=== PATIENT | male | born 1955 | race Caucasian/White ===

== ENCOUNTER 2018-04-14 08:50 | Inpatient (IN) | payer OTHER ==
[~2018-04-14] VITALS: Ht 172.7 cm; Wt 80.9 kg
--- NOTE | 2018-04-14 09:00 | NUR ---
PT WAS BROUGHT IN BY AMBULANCE W/CC OF ALOC. PER MEDICS "PATIENT'S WITNESSED PATIENT HAVING A FULL BODY SHAKE THAT LASTED ABOUT 10MINS. UPON ARRIVAL, PATIENT WAS A/O X1. HE'S NOW A/O X4. NO PRIOR HX OF SEIZURE STATED BY PATIENT OR PATIENT'S ". PT ANSWERING QUESTIONS APPROPRIATELY AT THIS TIME. SEIZURE PRECAUTIONS IMPLEMENTED. DR. VIVEROS AT BEDSIDE FOR MSE. COMFORT MEASURES IMPLEMENTED. NO NEUROLOGICAL DEFICITS NOTED AT THIS TIME HOWEVER PT STATED HE HAS HAD INCREASED DIFFICULTY AMBULATING LATELY WHICH HE REPORTS WAS OCCURING PRIOR TO POSSIBLE SEIZURE TODAY. CALL LIGHT W/IN REACH. WILL CONTINUE TO MONITOR.
[2018-04-14 09:01] VITALS: Ht 172.7 cm; Wt 80.9 kg
[2018-04-14 09:26] LABS: BASOPHIL % 0.7 % (0-2); RED CELL DISTRIBUTION WIDTH 14.1 % (11.5-14.5)
[2018-04-14 09:27] LABS: CALCIUM 8.6 mg/dL (8.5-10.1); CARBON DIOXIDE 23.4 mmol/L (21-32); CHLORIDE SERUM 98 mmol/L (98-107); CREATININE SERUM 1.2 mg/dL (0.7-1.3); GFR1 > 60 mL/min; GLUCOSE SERUM 101 mg/dL (74-106); POTASSIUM SERUM 3.3 mmol/L (3.5-5.1); SODIUM SERUM 139 mmol/L (136-145)
[2018-04-14 09:32] LABS: ALKALINE PHOSPHATASE 90 U/L (46-116); ALT/SGPT 31 U/L (16-63); AST/SGOT 52 U/L (15-37); CHOLESTEROL 162 mg/dL (<200); TOTAL PROTEIN, SERUM 7.9 g/dL (6.4-8.2)
[2018-04-14 09:34] LABS: ALBUMIN 3.3 g/dL (3.4-5.0)
--- NOTE | 2018-04-14 09:42 | NUR ---
PT MEDICATED PER ORDER. SEE EMAR FOR DETAILS. AT BEDSIDE. PT IN POSITION OF COMFORT. NO S/S OF DISTRESS.
[2018-04-14 10:03] LABS: PLATELET COUNT 17 x10^3mcL (130-400)
--- NOTE | 2018-04-14 11:20 | NUR ---
PT UNABLE TO URINATE AT THIS TIME. PT LAYING ON GURNEY IN POSITION OF COMFORT. RESP E/U. NO S/S OF DISTRESS. PT AT BEDSIDE. PT COMMUNICATING W/ AND STAFF. CALL LIGHT W/IN REACH. WILL CONTINUE TO MONITOR
--- NOTE | 2018-04-14 12:10 | NUR ---
PT SITTING ON GURNEY IN POSITION OF COMFORT. AT BEDSIDE. NO S/S OF DISTRESS. RESP E/U. COMFORT MEASURES IMPLEMENTED. CALL LIGHT W/IN REACH. WILL CONTINUE TO MONITOR.
[2018-04-14 13:32] LABS: MAGNESIUM 1.1 mg/dL (1.8-2.4); PHOSPHOROUS 3.1 mg/dL (2.5-4.9)
[2018-04-14 13:41] LABS: FREE T4 1.22 ng/dL (0.76-1.46); FREE THYROXINE INDEX 3.3 ug/dL (1.4-4.5); T4(THYROXINE) 8.6 ug/dL (4.7-13.3)
[2018-04-14 13:44] LABS: T3 TOTAL 0.79 ng/mL
--- NOTE | 2018-04-14 14:52 | NUR ---
REPORT GIVEN TO EDITH MCELROY TO ASSUME CARE OF PT.
[2018-04-14 15:26] VITALS: BP 134/86
--- NOTE | 2018-04-14 15:29 | NUR ---
RECEIVED PT FROM ED VIA [employer]. ORIENTED PT TO ROOM AND SURROUNDINGS. IV NOTED TO RFA PATENT AND INTACT. TELE 32 PLACED ON PT READING NSR. INSTRUDCTED PT ON THE USE OF CALL LIGHT FOR ASSISTANCE. WILL CONTINUE TO MONITOR
[2018-04-14] MEDS ORDERED: ALDACTONE50 MG PO (16:17)
[2018-04-14] MEDS ORDERED: LASIX40 MG PO (16:18)
[2018-04-14] MEDS ORDERED: NATURE'S BLEND F1 MG PO ×2 (16:18→19:11)
[2018-04-14] MEDS ORDERED: VITAMIN B-121000 MC2 PO (16:20)
[2018-04-14] MEDS ORDERED: PHARMASSURE VI100 MG PO (16:21)
--- NOTE | 2018-04-14 16:30 | NUR ---
PLT 17, MADE SKIDWAY MAN GENET AWARE, NO ORDERS RECEIVED. K+ 3.3, MADE SKIDWAY MAN GENET AWARE, STATES HE WILL ORDER POTASSIUM, AWAITING ORDERS.
--- NOTE | 2018-04-14 16:31 | NUR ---
RECEIVED PT AWAKE, ALERT, RESPIRATIONS EVEN AND UNLABORED, NO S/S OF DISTRESS NOTED. IV SITE CDI AND PATENT. ULTRASOUND IN ROOM.
[2018-04-14 16:56] VITALS: BP 122/75
--- NOTE | 2018-04-14 19:09 | NUR ---
ENDORSED CARE TO SOCK IRONER NURSE, ALL QUESTIONS AND CONCERNS WERE ADDRESSED. PT AWAKE, ALERT, RESPIRATIONS EVEN AND UNLABORED, NO S/S OF DISTRESS NOTED. SAFETY PRECAUTIONS IN PLACE
--- NOTE | 2018-04-14 19:31 | NUR ---
RECEIVED PATIENT FROM DAY SHIFT RN. TELE 32 NSR HR 95. PATIENT DENIES ANY CHEST PAIN. PATIENT IS AAOX4. LUNG SOUNDS CLEAR ON RA. IV RFA PATENT INFUSING WELL. PATIENT HAS MILD HAND MOVEMENTS. LEFT WRIST COVERED IN DRESSING. SAFETY PRECAUTIONS IN PLACE. SEIZURE PRECAUTIONS IN PLACE. FAMILY AT BEDSIDE. CALL BUTTON WITHIN REACH WILL CONTINUE TO MONITOR.
--- NOTE | 2018-04-14 20:18 | NUR ---
SKIN TEAR NOTED ON LEFT WRIST LOWER EXTREMITY, PICTURE TAKEN AND COVERED.
[2018-04-14 20:40] VITALS: BP 121/72
--- NOTE | 2018-04-14 21:57 | NUR ---
DR XIE MADE AWARE OF PATIENTS LAB RESULT K 3.3 AND PLT OF 17. AWAITING NEW ORDER.
--- NOTE | 2018-04-14 22:31 | NUR ---
PATIENT AWAKE IN BED, DENIES ANY PAIN OR DISCOMFORT. SEIZURE PRECAUTIONS IN PLACE. SAFETY PRECAUTIONS IN PLACE. WILL CONTINUE TO MONITOR.
--- NOTE | 2018-04-15 01:12 | NUR ---
PATIENT RESTLESS, UNSTEADTY TRYING TO GET OUT OF BED, ATIVAN GIVEN PER EMAR. SAFETY PRECAUTIONS IN PLACE. WILL CONTINUE TO MONITOR.
--- NOTE | 2018-04-15 02:32 | NUR ---
PATIENT STILL RESTLESS AND HAVING TREMORS. DR XIE MADE AWARE AND ORDERED ATIVAN IV. MEDICATED PER EMAR. SAFETY PRECAUTIONS IN PLACE. WILL CONTINUE TO MONITOR.
--- NOTE | 2018-04-15 03:26 | NUR ---
PATIENT LAYING DOWN IN BED, DENIES ANY PAIN AT THIS TIME, SAFETY PRECAUTIONS IN PLACE. WILL CONTINUE TO MONITOR.
--- NOTE | 2018-04-15 05:37 | NUR ---
PATIENT AGITATED AND RESTLESS, PATIENT SEEMS CONFUSED THINKING HE HAS FAMILY MEMBERS AT BEDSIDE, TRYING TO TAKE OFF MONITOR. DR XIE MADE AWARE. ATIVAN GIVEN PER EMAR. SAFETY PRECAUTIONS IN PLACE. WILL CONTINUE TO MONITOR.
--- NOTE | 2018-04-15 05:54 | NUR ---
PATIENT IS ALERT AND OREINTED WITH CONFUSION THINKS HE HAS HIS FAMILY IN THE ROOM WITH HIM. PATIENT GETS AGITATED FREQUENTLY TRYING TO GET OUT OF BED AND TAKE OFF THE TELE MONITOR. PATIENT UNSTEADY ON HIS FEET. GENERALIZED WEAKNESS. IV RFA INFUSING WELL. SKIN TEAR NOTED TO LEFT WRIST DRESSING CDI. SEIZURE PRECAUTIONS IN PLACE. SAFETY PRECAUTIONS IN PLACE. CALL BUTTON WITHIN REACH. MEDICATED PER EMAR. WILL CONTINUE TO MONITOR AND ENDORSE CARE TO DAY SHIFT RN.
[2018-04-15 06:13] VITALS: BP 160/79
[2018-04-15 06:54] VITALS: BP 111/78
--- NOTE | 2018-04-15 07:00 | NUR ---
PATIENT AND REPORT RECEIVED FROM BOOKING OFFICER LATESHA SHARMA.
[2018-04-15 07:26] LABS: BASOPHIL % 0.5 % (0-2); RED CELL DISTRIBUTION WIDTH 13.3 % (11.5-14.5)
[2018-04-15 07:31] LABS: PLATELET COUNT 13 x10^3mcL (130-400)
--- NOTE | 2018-04-15 07:38 | NUR ---
PATIENT ASLEEP RESTING NO SIGNS OF DISTRESS NOTED. SEIZURE PRECAUTIONS IN PLACE, SAFETY PRECAUTIONS IN PLACE. ENDORSED CARE TO DAY SHIFT RN, ALL QUESTIONS ADDRESSED.
[2018-04-15 07:52] LABS: ALKALINE PHOSPHATASE 80 U/L (46-116); ALT/SGPT 27 U/L (16-63); AST/SGOT 46 U/L (15-37); BILIRUBIN DIRECT 2.59 mg/dL (0.0-0.2); BILIRUBIN TOTAL 4.27 mg/dL (0.20-1.00); CALCIUM 7.9 mg/dL (8.5-10.1); CARBON DIOXIDE 22.9 mmol/L (21-32); CHLORIDE SERUM 99 mmol/L (98-107); CREATININE SERUM 0.7 mg/dL (0.7-1.3); GFR1 > 60 mL/min; GLUCOSE SERUM 70 mg/dL (74-106); POTASSIUM SERUM 3.1 mmol/L (3.5-5.1); SODIUM SERUM 137 mmol/L (136-145); TOTAL PROTEIN, SERUM 7.2 g/dL (6.4-8.2)
[2018-04-15 08:03] LABS: ALBUMIN 2.9 g/dL (3.4-5.0)
[2018-04-15 09:21] VITALS: BP 109/69
[2018-04-15 12:52] VITALS: BP 109/72
[2018-04-15 17:19] VITALS: BP 120/72
--- NOTE | 2018-04-15 19:25 | NUR ---
RECEIVED PT AWAKE, ALERT AND ORIENTED X4, DENIES ANY WILLIAMSON, DIZZINESS, NO SZ ACTIVITY NOTED SINCE BEING ADMITTED. SZ PRECAUTIONS IN PL. PT IS ABLE TO VERBALIZE NEEDS AND CONCERNS. TELE MONITOR IN PL, DENIES CHEST PAIN OR CHEST DISCOMFORT AT THIS TIME. ON RA, BREATHING IS EVEN AND UNLABORED. DENIES ANY SOB AT THIS TIME. NO C/O PAIN AT THIS TIME. IV TO RFA PATENT AND INTACT. NO SIGNS OF INFILTRATION OR REDNESS NOTED TO AREA. ALL SAFETY MEASURES MAINTAINED. CALL LIGHT AND PERSONAL BELONGINGS WITHIN REACH. AT BEDSIDE. WILL CONTINUE TO MONITOR.
--- NOTE | 2018-04-15 21:15 | NUR ---
REPORT GIVEN TO EDITH LIMA FOR CONTINUITY OF CARE. PT COMFORTABLE, NO DISTRESS NOTED. SAFETY MEASURES IN PL.
[2018-04-15 21:19] VITALS: BP 130/82
--- NOTE | 2018-04-15 21:35 | NUR ---
TOOK OVER PATIENT CARE FROM BHUMI, REPORT GIVEN. PATIOENT IN BED AWAKE AND ABLE TO VERBALIZED NEEDS WITH AT BEDSIDE. NO SIGN OF ACUTE DISTRESS NOTED. WILL CONTINUE TO MONITOR.
--- NOTE | 2018-04-16 | NUR ---
APPEARS SLEEPING AT THIS TIME BREATHING EASY AND NONLABOR. WILL CONTINUE TO MONITOR.
--- NOTE | 2018-04-16 05:04 | NUR ---
SLEPT AT LONG INTERVALS DENIES PAIN AND DISCOMFORT THE ENTIRE SHIFT. ALL NEEDS ATTENDED.
[2018-04-16 05:27] VITALS: BP 128/86
[2018-04-16 09:15] LABS: BASOPHIL % 0.7 % (0-2); RED CELL DISTRIBUTION WIDTH 13.6 % (11.5-14.5)
[2018-04-16 09:20] VITALS: BP 142/80
[2018-04-16 09:22] LABS: CALCIUM 8.8 mg/dL (8.5-10.1); CARBON DIOXIDE 22.8 mmol/L (21-32); CHLORIDE SERUM 101 mmol/L (98-107); CREATININE SERUM 0.7 mg/dL (0.7-1.3); GFR1 > 60 mL/min; GLUCOSE SERUM 92 mg/dL (74-106); POTASSIUM SERUM 3.4 mmol/L (3.5-5.1); SODIUM SERUM 136 mmol/L (136-145)
[2018-04-16 10:00] LABS: PLATELET COUNT 24 x10^3mcL (130-400)
[2018-04-16 13:46] VITALS: BP 139/91
--- NOTE | 2018-04-16 16:45 | NUR ---
CALL PLSQL DEVELOPER FLOYD MADE AWARE MG 1.4, NOTIFIED THAT PT HAS BEEN REFUSING MEDS. OBTAINED ORDER FOR PO MAG-OX 400MG PO ONCE AND ADD MG LEVEL IN AM LABS. ATTENDING NURSE MADE AWARE.
[2018-04-16 17:47] VITALS: BP 130/88
--- NOTE | 2018-04-16 19:35 | NUR ---
RECEIVED PT AWAKE, ALERT AND ORIENTED X4, PT DENIES ANY WILLIAMSON, DIZZINESS AT THIS TIME. SEIZURE PRECAUTIONS IN PL. MILD TREMORS NOTED. PT DENIES CHEST PAIN OR BREATHING DISCOMFORT. NO ACUTE DISTRESS. PT DENIES PAIN AT THIS TIME. IV TO RH PATENT AND INTACT. NO INFILTRATION OR REDNESS NOTED TO SITE. DISCUSSED ALCOHOL CESSATION AND PROGRAMS WITH PT, HE VERBALIZED UNDERSTANDING; ALL SAFETY MEASURES MAINTAINED. CALL LIGHT IN REACH AND PERSONAL ITEMS IN REACH. BED IN LOW POSITION, X2 RAILS UP. FAMILY AT BEDSIDE. WILL CONTINUE TO MONITOR.
[2018-04-16 21:08] VITALS: BP 126/83
--- NOTE | 2018-04-16 23:20 | NUR ---
PT RESTING COMFORTABLY WITH EYES CLOSED; EASILY AROUSABLE. BREATHING EVEN AND UNLABORED. NO C/O PAIN OR DISCOMFORT NOTED. ALL SAFETY MEASURES MAINTAINED. CALL LIGHT AND PERSONAL ITEMS IN REACH. WILL CONTINUE TO MONITOR.
[2018-04-17 05:09] VITALS: BP 119/89
--- NOTE | 2018-04-17 06:36 | NUR ---
PT RESTED DURING THE NIGHT WITH NO DISTRESS OR ACUTE CHANGES IN CONDITION. PT REMAINS ALERT AND ORIENTED TO BASELINE. SLIGHT CONFUSION AT TIMES, NO REPORTS OF HALLUCINATION NOTED, NO AGITATION NOTED. SZ PRECAUTIONS HAVE BEEN MAINTAINED. PT HAS BEEN HAS BEEN CALM AND COLLABORATIVE WITH CARE. CALL LIGHT IN REACH. WILL ENDORSE CARE TO AM NURSE AND CONTINUE TO MONITOR.
--- NOTE | 2018-04-17 08:00 | NUR ---
RECEIVED PATEINT ON ALCOHOL WITHDRAW. ALERT/ORINTED X3. SEIZURE PRECAUTION IN PLACE. TELE#32; ST = HR = 110. DENIED CHEST PAIN. NO RESP DISTRESS ON RA. TOLERATED REGULAR DIET BREAKFAST. NO N/V. DENIED PAIN. IVF OF NS 40CC/HR TO LFA. GENERAL WEAKNESS. ABULATED ON SLOW GAIT. SKIN TEAR TO L WRIST W/ DRSG INTACT. CALL LIGHT IN REACH.
--- NOTE | 2018-04-17 09:15 | NUR ---
SOPHIA DE LEÓN SAW PATIENT. PLAN OF DISCHARGE TO HOME W/ HOME PT TODAY DISCUSSED W/ PATIENT. KACEYEN TPULLED OUT NEEDLE AND TELE MONITOR BY SELF. AT BED SIDE.
[2018-04-17 09:28] VITALS: BP 105/75
[2018-04-17 10:07] VITALS: BP 119/89
--- NOTE | 2018-04-17 11:00 | NUR ---
WOUND CARE OF SKIN TEAR AT L WRIST GIVEN. PHOTO TAKEN AND FILED.
--- NOTE | 2018-04-17 11:35 | NUR ---
D/C TO HOME PER ORDER. INSTRUCTION GIVEN. IV D/C'D. OVER NEEDLE CATH INTACT. CONDITION STABLE. WALKED IN ROOM. ACCOMPANIED W/ .
--- NOTE | 2018-04-18 13:59 | NUR ---
PHYSICAL THERAPY DAILY NOTES CO-SIGN All documentation done by the Kinesiology Professor for 04/18/18 has been reviewed. I agree with the documentation. Reviewed/Co-Signed by: Krista Jones Documentation Done by:LYN TRAN
== END 2018-04-17 11:24 | disposition home health service (06) | DRG 53 ==
LOC: ED 08:50 → DU 10:52
PROVIDERS: Radiology Diagnostic Radiology; Specialist; ADMIT Family Medicine
DX: R56.9 Unspecified convulsions (principal); N17.0 Acute kidney failure with tubular necrosis; E44.0 Moderate protein-calorie malnutrition; D61.818 Other pancytopenia; D68.8 Other specified coagulation defects; G62.9 Polyneuropathy, unspecified; E83.42 Hypomagnesemia; E86.0 Dehydration; F10.239 Alcohol dependence with withdrawal, unspecified; K70.30 Alcoholic cirrhosis of liver without ascites; Y90.0 Blood alcohol level of less than 20 mg/100 ml; F17.210 Nicotine dependence, cigarettes, uncomplicated; E87.6 Hypokalemia; I10 Essential (primary) hypertension
CPT/HCPCS: 84439; 97110-GP; 97116-GP; 97530-GP; G0480; J2060; J3411; J3475; J3490; J7030; Q0092

== ENCOUNTER 2018-11-02 21:46 | Inpatient (IN) | payer OTHER ==
[~2018-11-02] VITALS: Ht 177.8 cm; Wt 76.2 kg
[~2018-11-02 21:46] MED LIST: ALDACTONE50 MG PO; LASIX40 MG PO; NATURE'S BLEND F1 MG PO; PHARMASSURE VI100 MG PO; VITAMIN B-121000 MC2 PO
[2018-11-02 21:52] VITALS: Ht 177.8 cm; Wt 76.2 kg
--- NOTE | 2018-11-02 21:55 | NUR ---
PT B[facility] AND [facility] WITH C/O BILATERAL LEG WEAKNESS X2 DAYS. PT HAS A HX OF ETOH ABUSE X30 YRS. PT STATES THAT HIS LAST DRINK WAS YESTERDAY, PT STATES THAT HE DID NOT CONSUME ETOH TODAY BECAUSE HE WAS NOT FEELING WELL. PT STATES THAT HE USUALLY DRINKS VODKA. PT NOTED WITH COURSE TREMORS TO FACE, TRUNK, AND UPPER EXTREMITIES. PT DENIES PAIN AT THIS TIME BUT STATES TO FEELING GENERALLY WEAK. PER MEDICS, PT HOME WAS "VERY WARM". 12 LEAD EKG PERFORMED BY MEDICS SHOWED SINUS TACHYCARDIA. HR NOTED AT 126 AT THIS TIME. IV ESTABLISHED BY MEDICS EN ROUTE. PT AOX4, RESP EVEN AND UNLABORED, NO ACUTE DISTRESS NOTED. PT ON FULL CM.
[2018-11-02 22:39] LABS: BASOPHIL % 0.3 % (0-2)
[2018-11-02 22:41] LABS: CALCIUM 8.9 mg/dL (8.5-10.1); CARBON DIOXIDE 20.7 mmol/L (21-32); CHLORIDE SERUM 94 mmol/L (98-107); CREATININE SERUM 1.2 mg/dL (0.7-1.3); GFR1 > 60 mL/min; GLUCOSE SERUM 87 mg/dL (74-106); POTASSIUM SERUM 3.6 mmol/L (3.5-5.1); SODIUM SERUM 140 mmol/L (136-145)
[2018-11-02 22:43] LABS: RED CELL DISTRIBUTION WIDTH 15.6 % (11.5-14.5)
[2018-11-02 22:44] LABS: PLATELET COUNT 20 x10^3mcL (130-400)
[2018-11-02 22:45] LABS: ALKALINE PHOSPHATASE 64 U/L (46-116); ALT/SGPT 70 U/L (16-63); AST/SGOT 82 U/L (15-37); BILIRUBIN TOTAL 6.3 mg/dL (0.20-1.00); LIPASE 217 IU/L (73-393)
[2018-11-02 22:46] LABS: TOTAL PROTEIN, SERUM 8.7 g/dL (6.4-8.2)
[2018-11-02 22:52] LABS: MAGNESIUM 0.8 mg/dL (1.8-2.4)
--- NOTE | 2018-11-02 23:00 | NUR ---
MAGNESIUM INFUSION STARTED FOR CRITICAL MAG LEVEL. PT AOX4, RESP EVEN AND UNLABORED, NO ACUTE DISTRESS NOTED. PT REMAINS ON FULL CM.
--- NOTE | 2018-11-03 00:24 | NUR ---
PT UNABLE TO PROVIDE URINE SPECIMEN AT THIS TIME. PER DR TIANNA SAEZ TO TRANSFER WITHOUT URINE.
--- NOTE | 2018-11-03 00:24 | NUR ---
PT REPORT CALLED TO YOLANDA SHARMA TO ASSUME PT CARE.
--- NOTE | 2018-11-03 00:30 | NUR ---
RECEIVED PT VIA JUAN LUIS FROM E/D, ACCOMPANIED BY RN, TRANSPORTER, AND PT'S , MATTY FORREST. PT A/A/O X 4, CALM, COOPERATIVE, HAS SLURRED SPEECH; SEIZURE PRECAUTIONS IN PLACE. ON TELE # 14, HR 89, NSR, DENIES CHEST PAIN OR DISCOMFORT AT THIS TIME. NO ACUTE RESPIRATORY DISTRESS NOTED. ABD SOFT, ROUND, NON-TENDER, NORMOACTIVE BOWEL SOUNDS X 4 QUADS, LAST BM 11/01/18, FORMED, +NAUSEA. BLE WEAKNESS, USES WALKER @ HOME, UPPER BODY FINE TREMORS NOTED, FALL RISK PROTOCOL IN PLACE. LFA SCATTERED ECCHYMOSIS OF VARYING SHAPES, SIZES, AND STAGES OF HEALING, ALL LOREN; L MEDIAL FOOT SCATTERED BLISTERS OF VERYING SIZES AND COLORS, ALL LOREN. IV SITE LFA 18G, CDI. ORIENTED PT AND TO ROOM, BED CONTROLS, CALL LIGHT SYSTEM. SIDE RAILS UP X 2, BED IN LOW POSITION. WILL ENDORSE TO EDITH GUERRERO.
--- NOTE | 2018-11-03 00:45 | NUR ---
RECEIVED PATIENT FROM EDITH GARBER. PATIENT WAS SEEN AND IS RESTING COMFORTABLY IN BED WITH JACK. NO DISTRESS NOTED. BREATHING EVEN AND UNLABORED ON ROOM AIR. NO SOB OR RESP DISTRESS NOTED. NO C/O PAIN. STATES HE HAD NUMBNESS IN HIS BLE DUE TO HIS NEUROPATHY. IV TO THE LFA. PATENT AND INTACT. WILL ADMINISTERED NS PRESCRIBED. SEIZURE PRECAUTIONS IN PLACE. COMFORT AND SAFETY MEASURES IN PLACE. BED IS LOCKED AND IN THE LOWEST POSITION. SIDE RAILS UP X2. CALL LIGHT IS WITHIN REACH. WILL CONTINUE TO MONITOR.
--- NOTE | 2018-11-03 00:45 | NUR ---
PT TRANSFERRED TO 218B BY YASEMIN BY MYSELF AND SENIA EMT. PT ON ORNAMENT MAKER HAND FOR TRANSFER. PT AOX4, RESP EVEN AND UNLABORED, NO ACUTE DISTRESS NOTED. PT ACCEPTED BY YOLANDA SHARMA TO ASSUME PT CARE. PT TRANSFERRED FROM [facility] TO BED WITHOUT INCIDENT.
[2018-11-03 00:56] VITALS: BP 116/73
--- NOTE | 2018-11-03 01:07 | NUR ---
PATIENT REQUESTIN ICE WATER. NO DIET ORDER AT THIS TIME. PAGE GATED DR DISLA FOR DIET ORDERS. NO NEW ORDERS AT THIS TIME. WILL CONTINUE TO MONITOR
--- NOTE | 2018-11-03 01:18 | NUR ---
GAVE PATIENT ICE WATER. PAGE GATED DR DISLA FOR ETOH PROTOCOL ORDERS. PATIENT IS A CHRONIC DRINKER X30 YEARS. LAST DRINK WAS YESTERDAY. NO NEW ORDERS AT THIS TIME. WILL CONTINUE TO MONITOR.
--- NOTE | 2018-11-03 01:38 | NUR ---
URINE COLLECTED FOR UA AND UDS. DARK MELODY YELLOW URINE NOTED. DENIES DSYURIA. WILL CONTINUE TO MONITOR
[2018-11-03 02:13] LABS: microscopic required? NO
[2018-11-03 02:27] LABS: AMPHETAMINE QUAL UR NONE DETECTED (See below)
[2018-11-03 02:39] LABS: UA SPECIFIC GRAVITY 1.015 (1.005-1.035); urine erythrocyte NEGATIVE (NEGATIVE)
--- NOTE | 2018-11-03 02:54 | NUR ---
PATIENT IS RESTING IN BED COMFORTABLY WATCHING TV. DENIES PAIN. NO DISTRESS NOTED. BREATHING EVEN AND UNLABORED ON ROOM AIR. SEIZURE PRECAUTIONS IN PLACE. CALL LIGHT IS WITHIN REACH. WILL CONTINUE TO MONITOR.
[2018-11-03 04:56] VITALS: BP 116/75
--- NOTE | 2018-11-03 05:18 | NUR ---
PATIENT IS RESTING IN BED W/ EYES CLOSED AT THIS TIME. NO ACUTE CHANGES NOTED. BREATHING EVEN AND UNLABORED ON ROOM AIR. NO DISTRESS NOTED. NO C/O PAIN OR CHEST PAIN THROUGHOUT THE NIGHT. IV TO THE LFA INFUSING WELL. PATENT AND INTACT. NO REDNESS OR SWELLING NOTED. FALL PRECAUTIONS AND ETOH WITHDRAWAL IN PLACE. SEIZURE PRECAUTIONS IN PLACE. NO SEIZURES NOTED. SAFETY MEASURES IN PLACE. CALL LIGHT IS WITHIN REACH. WILL CONTINUE TO MONITOR AND ENDORSE CARE TO DAY SHIFT RN.
[2018-11-03 06:42] LABS: BASOPHIL % 0.3 % (0-2)
[2018-11-03 07:10] LABS: RED CELL DISTRIBUTION WIDTH 15.8 % (11.5-14.5)
[2018-11-03 07:13] LABS: PLATELET COUNT 13 x10^3mcL (130-400)
--- NOTE | 2018-11-03 07:25 | NUR ---
CRITICAL LAB: PLT 13. DR DISLA NOTIFIED AND AWARE. NO NEW ORDERS AT THIS TIME. DAY SHIFT RN CORA AWARE WELL.
--- NOTE | 2018-11-03 07:45 | NUR ---
PATIENT RESTING IN BED, NO ACUTE DISTRESS NOTED AT THIS TIME. PATIENT IS PLACED ON SEIZURE. TELE MONITOR IN PLACE, DENIES CHEST PAIN. PATIENT DENIES N/V. WEAKNESS NOTED TO BILATERAL LOWER EXTREMITIES. NS IV INFUSING TO LFA AT 100ML/HR, IV SITE CDI &PATENT, AND NO S/S OF INFILTRATION. CALL LIGHT WITHIN REACH, BED IN LOW POSITION, WILL CONTINUE TO MONITOR FOR CHANGES.
[2018-11-03 09:07] VITALS: BP 106/73
--- NOTE | 2018-11-03 10:24 | NUR ---
PATIENT AMBULATING HALLWAY WITH PHYSICAL THERAPY, SLOW GAIT NOTED. PATIENT DENEIS SOB, ON ROOM AIR. WILL CONTINUE TO MONITOR FOR CHANGES.
[2018-11-03 10:39] LABS: CALCIUM 7.7 mg/dL (8.5-10.1); CHLORIDE SERUM 96 mmol/L (98-107); GFR1 > 60 mL/min; GLUCOSE SERUM 76 mg/dL (74-106); MAGNESIUM 1.3 mg/dL (1.8-2.4); PHOSPHOROUS 3.6 mg/dL (2.5-4.9); POTASSIUM SERUM 3.4 mmol/L (3.5-5.1); SODIUM SERUM 136 mmol/L (136-145)
--- NOTE | 2018-11-03 11:50 | NUR ---
DR CUMMINGS AWARE PATIENT MAG WAS 1.3, K 3.4, CA 7.7. DR CUMMINGS WILL PLACE ORDERS TO REPLACE ELECTROLYTES, WILL CARRY OUT ANY NEW ORDERS PLACED AND CONTINUE TO MONITOR FOR CHANGES.
[2018-11-03 12:41] VITALS: BP 108/69
--- NOTE | 2018-11-03 12:41 | NUR ---
PATIENT AMBULATED TO BR AT THIS TIME, SLOW UNSTEADY GAIT NOTED. FAMILY AT BEDSIDE. NO ACUTE DISTRESS NOTED AT THIS TIME, WILL CONTINUE TO MONITOR PATIENT.
[2018-11-03 14:39] LABS: BASOPHIL % 0.2 % (0-2)
[2018-11-03 14:53] LABS: RED CELL DISTRIBUTION WIDTH 15.5 % (11.5-14.5)
[2018-11-03 14:56] LABS: PLATELET COUNT 10 x10^3mcL (130-400)
[2018-11-03 17:18] VITALS: BP 102/72
--- NOTE | 2018-11-03 17:48 | NUR ---
PATIENT SITTING AT BEDSIDE, PATIENT IS EATING. FAMILY AT BEDSIDE. PATIENT DENIES PAIN. SEIZURE PRECAUTIONS IN PLACE. TELE MONITOR IN PLACE. PATIENT DENIES SOB, ON ROOM AIR. ALL NEEDS MET AT THIS TIME. NS IV INFUSING TO LFA AT 100ML/HR, NO S/S OF INFILTRATION. CALL LIGHT WITHIN REACH, BED IN LOW POSITION, WILL CONTIUE TO MONITOR AND ENDORSE REPORT TO NIGHT NURSE.
[2018-11-03 20:36] VITALS: BP 104/69
--- NOTE | 2018-11-03 21:09 | NUR ---
Awake and verbally responsive. No respiratory distress noted on room air. Denies pain at this time. Denies n/v. Seizure precaution observed. Will cont.to monitor. Call light within reach.
--- NOTE | 2018-11-04 04:17 | NUR ---
Afebrile. No significant change in condition noted. Resting in bed, no tremors noted. Denies pain. In no apparent distress.
[2018-11-04 04:58] VITALS: BP 103/68
[2018-11-04 06:41] LABS: CALCIUM 8.6 mg/dL (8.5-10.1); CARBON DIOXIDE 26.4 mmol/L (21-32); CHLORIDE SERUM 97 mmol/L (98-107); CREATININE SERUM 0.9 mg/dL (0.7-1.3); GFR1 > 60 mL/min; GLUCOSE SERUM 87 mg/dL (74-106); MAGNESIUM 1.7 mg/dL (1.8-2.4); POTASSIUM SERUM 3.2 mmol/L (3.5-5.1); SODIUM SERUM 137 mmol/L (136-145)
--- NOTE | 2018-11-04 07:12 | NUR ---
RECEIVED HAND OFF REPORT FROM NIGHT NURSE, PATIENT LAYING ON LEFT SIDE IN BED, ALERT AND ORIENTED WITH NO COMPLAINTS AT THIS TIME, TELE [address] CALL LIGHT WITHIN REACH, YELLOW SLIP RESISTANT SOCKS ON. PATIENT STATED HIS WILL BE HERE SHORTLY. INFORMED PATIENT THAT IF HE NEEDS TO GET UP TO USE CALL LIGHT FOR ASSISTANCE. WILL CONTINUE TO MONITOR
[2018-11-04 08:53] LABS: RED CELL DISTRIBUTION WIDTH 15.4 % (11.5-14.5)
[2018-11-04 08:57] VITALS: BP 107/73
--- NOTE | 2018-11-04 09:08 | NUR ---
ADMINSITERED MEDICATION PER JUN. PATIENT COMPLAINING OF PAIN TO LEFT HIP REQUESTING NORCO. WILL REASSESS PAIN
--- NOTE | 2018-11-04 09:20 | NUR ---
RECEIVED CRITICAL LAB VALUE FROM LAB OF PLATELET COUNT OF 18. TRENDING UP FROM PREVIOUS BLOOD WORK. CALLED DESIRE GRANT COORDINATOR TO INFORM BUT NO ANSWER A TTHIS TIME. WILL TRY AGAIN
--- NOTE | 2018-11-04 10:42 | NUR ---
ADMINSITERED MEDICATION PER MAR. PATIENT SLEEPING AT THIS TIME. AT BEDSIDE ASKING ABOUT NICOTINE PATCH. DESIRE TO SEE PATIENT AT THIS TIME
--- NOTE | 2018-11-04 11:13 | NUR ---
PATEINT REQUESTING NICOTINE PATCH. RECEIVED ORDER FROM DESIRE REGISTERED RESPIRATORY TECHNICIAN. PLACED ON RIGHT ARM. CALL LIGHT WITHINR EACH, IN ROOM
[2018-11-04 12:10] LABS: BAND NEUTROPHIL 0 % (0-10); rbc morphology (normal/abnorm) NORMAL (NORMAL)
[2018-11-04 12:18] LABS: PLATELET COUNT 18 x10^3mcL (130-400)
--- NOTE | 2018-11-04 12:31 | NUR ---
patient visualized sitting up at side of bed wth at [facility]. no complaints at this time. call light wihtinr each. will continue to monitor
--- NOTE | 2018-11-04 14:10 | NUR ---
ASSISTED PATIENT TO REPOSITION SELF IN BED. PATIENT ABLE TO MOVE WITH MINIMAL ASSISTANCE. PATIENT STATED HIS HELPED HIM SHAVE WITH SUPPLIES BROUGHT FROM HOME. NO CUTS OR BLEEDING DURING SHAVING. ADMINSITERED MEDICATION PER MAR. PATIENT REQUESTED TO REST AT THIS TIME. DOWNSTAIRS, WILL RETURN. CALLIGHT WITHIN REACH OF PATIENT.
--- NOTE | 2018-11-04 15:22 | NUR ---
Intervention 1. Continue with Cardiac-LoChol/LoFat/2gNa diet 2. Education given on Cirrhosis of liver
--- NOTE | 2018-11-04 15:22 | NUR ---
Initial Nutrition Assessment: Fred Joaquim OLGA Rm 218B Dx: Alcohol withdrawal, weakness PMHx: HTN, Liver cirrhosis, peripheral neuropathy, seizure, thrombocytopenia, ETOH abuse 30+ years PSHx: None Labs: K 3.2L, Cl 97L, (11/03) WBC 3.7L, Hgb. 10.9L, Hct. 31L Meds: Colace, Folic Acid, Lasix, Librium, Theragran-m, Vit. B1 and B12, B6, Zofran Diet: Cardiac-LoChol/LoFat/2gNa PO intake since admission: (11/03) 40-80% Ht: 177.8cm, 70in Wt: 76.2kg, 167# BMI: 24.1kg/m2(Normal) Bed scale: could not take due to pt not in bed, per his he is normally 170# IBW:160#, 73kg %IBW: 104% UBW: 160-170# Age: 63/M Food Allergies: NKA Skin: Intact. Krish: 19 Edema: None noted GI: Last BM: 11/04/18 per pt's Per H&P: This patient is a 63 year old male with history of heavy alcohol use, alcoholic cirrhosis, seizures, HTN was brought in by EMS from home to the ED with c/o generalized weakness for the past 1 week. Patient's stated he is barely able to walk and he feels very weak. Patient stated he drinks 5 cans of alcohol every day and his last drink was yesterday. He didn't drink alcohol today. No c/o seizure, loss of consciousness, slurred speech, confusion, fever, headache, chest pain, urinary disturbance, abdominal pain, Hematemesis, jia. Patient ambulates with the help of walker and doesn't use home oxygen. 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 She said she is going to make sure he stops drinking alcohol and will continue to monitor how big his portion sizes will be. NCM packet on Cirrhosis of the liver was given to the . Marissa also said the pt was prescribed a fiber supplement because he has had a history of constipation and she said he uses it sporadically. Pt is taking Lasix 40mg a day. Problem with: N: No V: No D: No C: Yes Problems with: Chewing: None Swallowing: None Current appetite: Good Recent wt change: None %wt change: None Vitamin/Supplement use: Takes B-Complex vitamins daily Special diet at home: Low sodium Physical activity: None due to peripheral neuropathy in his legs Nutrition education given (specify specific nutrition education and handout given): NCM on Cirrhosis of the Liver packet Food-drug interactions: Lasix-watch your potassium levels. Education given: Yes Estimated Nutritional Needs Based on actual body weight (76kg) Energy:4876-1184 kcal/day (30-32kcal/kg for liver cirrhosis ) Protein: 76-114g/day (1.0-1.5g/kg for liver cirrhosis) Fluid: 2280-2430mL/day (1 mL/kcal) or per Nutrition Diagnosis: 1. Excessive alcohol intake r/t lack of value for behavior change aeb per H&P pt reported drinking more than 5 cans of alcohol a everyday. Intervention 1. Continue with Cardiac-LoChol/LoFat/2gNa diet 2. Education given on Cirrhosis of liver Monitor/Evaluate Goal: PO intake at least 75% of estimated needs Monitor: PO intake, Labs, GI function F/U 11/07-11/09
[2018-11-04 16:08] VITALS: BP 101/71
--- NOTE | 2018-11-04 17:25 | NUR ---
PATIENT RESTING AT THIS TIME. NO COMPLAINTS. AT BEDSIDE. CALL IGHT WITHIN REACH
--- NOTE | 2018-11-04 19:35 | NUR ---
RECEIVED PT FROM DAY SHIFT RN. PT AAOX4. DENIES HEADACHE OR DIZZINESS. BREATHING EVEN AND UNLABORED, NO SOB NOTED. TELE #14. PT DENIES CHEST PAIN/PRESSURE. ABD SOFT/ROND. ACTIVE BOWEL SOUNDS DENIES ABD PAIN/N/V. GENERALIZED WEAKNESS NOTED. IV LFA PATENT. NO SIGNS OF ACUTE DISTRESS NOTED. CALL BUTTON WITHIN REACH. SAFETY PRECAUTIONS IN PLACE. SEIZURE PRECAUTIONS IN PLACE. AT BEDSIDE. WILL CONTINUE TO MONITOR.
--- NOTE | 2018-11-04 20:20 | NUR ---
DR POWELL AND DR QUAN MADE AWARE PT POTASSIUM LEVEL 3.2. NO NEW ORDERS AT THIS TIME.
[2018-11-04 21:11] VITALS: BP 98/66
--- NOTE | 2018-11-05 00:34 | NUR ---
DR POWELL RE-INFORMED ABOUT PATIENTS k+3.2 THAT IT HAD BEEN TRENDING DOWN AND PATIENT ON DAILY LASIX AND ALDACTONE. MD VERBALLY STATED WILL ORDER TO REPLACE IT. WILL ENDORSE ABOVE TO ASSIGNED NURSE SAMMI TO FOLLOW UP.
--- NOTE | 2018-11-05 01:30 | NUR ---
PT AWKAE DENIES PAIN. NO SIGNS OF DISTRESS NOTED. IV PATENT. CALL BUTTON WITHIN REACH. SAFETY PRECAUTIONS IN PLACE. WILL CONTINUE TO MONITOR.
--- NOTE | 2018-11-05 05:49 | NUR ---
PT SLEPT MOST OF THE NIGHT WITH NO SIGNS OF DISTRESS NOTED. IV PATENT, INFUSING WELL. NO SIGNS OF INFILTRATION NOTED. PT DENIES ANY PAIN. MEDICATED PER EMAR. PT USES URINAL AT BEDSIDE. CALL BUTTON WITHIN REACH. SAFETY/SEIZURE PRECAUTIONS IN PLACE. WILL CONTINUE TO MONITOR AND ENDORSE CARE TO DAY SHIFT RN.
[2018-11-05 05:51] VITALS: BP 98/63
[2018-11-05 06:57] LABS: CALCIUM 8.9 mg/dL (8.5-10.1); CARBON DIOXIDE 28.5 mmol/L (21-32); CHLORIDE SERUM 99 mmol/L (98-107); CREATININE SERUM 0.9 mg/dL (0.7-1.3); GFR1 > 60 mL/min; GLUCOSE SERUM 83 mg/dL (74-106); POTASSIUM SERUM 3.8 mmol/L (3.5-5.1); SODIUM SERUM 137 mmol/L (136-145)
--- NOTE | 2018-11-05 07:25 | NUR ---
RECEIVED HAND OFF REPORT FROM NIGHT NURSE. PATIENT FOUND SITTING UP IN BED WITH NO NOTABLE DISTRESS, NO COMPAINTS AT THIS TIME. ASKING ABOUT HIS DISCHARGE. POTASSIUM NOW 3.8 AFTER PO MEDICATION LAST NIGHT. CALL LIGHT WITHIN REACH, WILL CONTINUE TO MONITOR
--- NOTE | 2018-11-05 07:26 | NUR ---
NO SIGNS OF DISTRESS NOTED. ENDORSED CARE TO DAY SHIFT RN, ALL QUESTIONS ADDRESSED.
[2018-11-05 08:15] VITALS: BP 102/61
[2018-11-05 08:51] LABS: RED CELL DISTRIBUTION WIDTH 15.5 % (11.5-14.5)
[2018-11-05 08:55] LABS: PLATELET COUNT 23 x10^3mcL (130-400)
--- NOTE | 2018-11-05 09:09 | NUR ---
RECEIVED CALL FROM LAB, PATIENT WBC WAS 3.8, REPORTED TO JOLANTA OSTEOPATHIC PHYSICIAN, NO NEW ORDERS. OSTEOPATHIC PHYSICIAN ASSESSED PATIENT. PATIENT WILL BE OKAY TO DISCHARGE AFTER 12. AT BEDSIDE AT THIS TIME
--- NOTE | 2018-11-05 09:35 | NUR ---
MEDICATIONS ADMINISTRED PER MAR. NO COMPLAINTS AT THIS TIME. DISCUSSED SAFETY MEASURES, MEDS, AND DISCHARGE PLAN. PT JUST SAW PATIENT, PATIENT REFUSING HOME HEALTH PHYSICAL THERAPY. CALL LIGHT WITHIN REACH, WILL CONTINUE TO MONITOR
[2018-11-05 10:33] VITALS: BP 102/61
[2018-11-05 12:45] LABS: BAND NEUTROPHIL 4 % (0-10); BASOPHIL 0 % (0-2); MONOCYTE 8 % (0-7); SEGMENTED NEUTROPHILS 71 % (37-75); rbc morphology (normal/abnorm) ABNORMAL (NORMAL)
[2018-11-05 12:46] LABS: PLATELET MORPHOLOGY PLATELETS DECREASED
[2018-11-05 12:48] VITALS: BP 100/69
--- NOTE | 2018-11-05 13:19 | NUR ---
PATIENT DISCHARGE ORDERS PREPARED. WENT OVER EDUCATION MATERIALS WITH PATIENT AND . ADDRESSED QUESTIONS THAT AROSE. INFORMED PATIENT OF PENDING APPOINTMENT WITH PCP. REMOVED IV FROM LEFT FOREARM. SITE WNL. NO REDNESS, SWELLING OR LEAKING, CATH IN TACT. REMOVED TELE 14 AND RETURNED TO TELE MONITORRAKESH. PATIENT ASSISTED OFF UNIT BY REY PAYTON. ALL BELONGINGS WITH PATIENT.
--- NOTE | 2018-11-07 14:46 | NUR ---
PHYSICAL THERAPY DAILY NOTES CO-SIGN All documentation done by the Personnel Supervisor for 11/07/18 has been reviewed. I agree with the documentation. Reviewed/Co-Signed by: Krista Jones PT Documentation Done by:LYN TRAN PTA FOR 11/05/18
== END 2018-11-05 13:43 | disposition home or self-care (01) | DRG 775 ==
LOC: ED 21:46 → DU 23:11
PROVIDERS: Emergency Medicine; ADMIT General Practice
DX: F10.239 Alcohol dependence with withdrawal, unspecified (principal); N17.0 Acute kidney failure with tubular necrosis; D69.59 Other secondary thrombocytopenia; E83.42 Hypomagnesemia; G62.1 Alcoholic polyneuropathy; K70.30 Alcoholic cirrhosis of liver without ascites; R74.0 Nonspecific elevation of levels of transaminase and lactic acid dehydrogenase [LDH]; I10 Essential (primary) hypertension; D53.9 Nutritional anemia, unspecified; G40.909 Epilepsy, unspecified, not intractable, without status epilepticus; F17.210 Nicotine dependence, cigarettes, uncomplicated; Z68.24 Body mass index [BMI] 24.0-24.9, adult
CPT/HCPCS: 97116-GP; 97530-GP; G0378; G0480; J2060; J2405; J3411; J3475; J3490; J7030; Q0092

== ENCOUNTER 2019-03-30 19:38 | Inpatient (IN) | payer OTHER ==
[~2019-03-30] VITALS: Ht 180.3 cm; Wt 79.0 kg
[2019-03-30 19:43] VITALS: Ht 180.3 cm; Wt 79.0 kg
[2019-03-30 21:09] LABS: BASOPHIL % 0.2 % (0-2)
[2019-03-30 21:13] LABS: RED CELL DISTRIBUTION WIDTH 15.4 % (11.5-14.5)
[2019-03-30 21:15] LABS: PLATELET COUNT 14 x10^3mcL (130-400)
[2019-03-30 21:30] LABS: ALKALINE PHOSPHATASE 87 U/L (46-116); ALT/SGPT 31 U/L (16-63); AST/SGOT 51 U/L (15-37); BILIRUBIN TOTAL 7.81 mg/dL (0.20-1.00); CALCIUM 8.3 mg/dL (8.5-10.1); CARBON DIOXIDE 23.9 mmol/L (21-32); CHLORIDE SERUM 96 mmol/L (98-107); CREATININE SERUM 0.8 mg/dL (0.7-1.3); GFR1 > 60 mL/min; GLUCOSE SERUM 79 mg/dL (74-106); SODIUM SERUM 138 mmol/L (136-145); TOTAL PROTEIN, SERUM 7.3 g/dL (6.4-8.2)
[2019-03-30 21:39] LABS: ALBUMIN 2.7 g/dL (3.4-5.0)
[2019-03-30 21:40] LABS: MAGNESIUM 0.9 mg/dL (1.8-2.4); POTASSIUM SERUM 2.7 mmol/L (3.5-5.1)
[2019-03-30 23:40] VITALS: BP 117/75
[2019-03-30 23:49] LABS: CHOLESTEROL/HDL RATIO 3.5
[2019-03-31 04:09] LABS: microscopic required? YES; urine erythrocyte NEGATIVE (NEGATIVE)
[2019-03-31 04:25] LABS: AMPHETAMINE QUAL UR NONE DETECTED (See below)
[2019-03-31 04:28] VITALS: BP 117/82
[2019-03-31 06:06] LABS: CALCIUM 7.9 mg/dL (8.5-10.1); CARBON DIOXIDE 24.1 mmol/L (21-32); CHLORIDE SERUM 98 mmol/L (98-107); CREATININE SERUM 0.8 mg/dL (0.7-1.3); GFR1 > 60 mL/min; GLUCOSE SERUM 72 mg/dL (74-106); MAGNESIUM 1.4 mg/dL (1.8-2.4); PHOSPHOROUS 2.5 mg/dL (2.5-4.9); SODIUM SERUM 138 mmol/L (136-145)
[2019-03-31 06:13] LABS: BASOPHIL % 0.3 % (0-2)
[2019-03-31 07:05] LABS: RED CELL DISTRIBUTION WIDTH 15.7 % (11.5-14.5)
[2019-03-31 07:11] LABS: BILIRUBIN DIRECT 5.44 mg/dL (0.0-0.2); BILIRUBIN TOTAL 7.75 mg/dL (0.20-1.00); TOTAL PROTEIN, SERUM 7.4 g/dL (6.4-8.2)
[2019-03-31 07:12] LABS: ALBUMIN 2.8 g/dL (3.4-5.0)
[2019-03-31 07:20] LABS: PLATELET COUNT 15 x10^3mcL (130-400)
[2019-03-31 08:01] VITALS: BP 111/72
[2019-03-31 11:53] VITALS: BP 109/79
[2019-03-31 16:25] VITALS: BP 114/79
[2019-03-31 20:49] VITALS: BP 99/69
[2019-04-01 05:47] VITALS: BP 98/69
[2019-04-01 06:30] LABS: BASOPHIL % 0.5 % (0-2)
[2019-04-01 06:50] LABS: RED CELL DISTRIBUTION WIDTH 15.8 % (11.5-14.5)
[2019-04-01 08:48] LABS: PLATELET COUNT 17 x10^3mcL (130-400)
[2019-04-01 08:56] VITALS: BP 118/76
[2019-04-01 09:24] LABS: ALKALINE PHOSPHATASE 80 U/L (46-116); ALT/SGPT 29 U/L (16-63); AST/SGOT 49 U/L (15-37); BILIRUBIN TOTAL 5.53 mg/dL (0.20-1.00); CALCIUM 7.6 mg/dL (8.5-10.1); CARBON DIOXIDE 23.3 mmol/L (21-32); CHLORIDE SERUM 101 mmol/L (98-107); CREATININE SERUM 0.8 mg/dL (0.7-1.3); GFR1 > 60 mL/min; GLUCOSE SERUM 73 mg/dL (74-106); MAGNESIUM 1.3 mg/dL (1.8-2.4); SODIUM SERUM 137 mmol/L (136-145); TOTAL PROTEIN, SERUM 6.5 g/dL (6.4-8.2)
[2019-04-01 09:50] LABS: ALBUMIN 2.5 g/dL (3.4-5.0); POTASSIUM SERUM 2.9 mmol/L (3.5-5.1)
[2019-04-01 12:28] VITALS: BP 107/72
[2019-04-01 16:25] VITALS: BP 95/58
[2019-04-01 20:40] VITALS: BP 104/59
[2019-04-02 05:55] VITALS: BP 107/71
[2019-04-02 06:48] LABS: BASOPHIL % 0.7 % (0-2)
[2019-04-02 06:57] LABS: CARBON DIOXIDE 22.3 mmol/L (21-32); CHLORIDE SERUM 104 mmol/L (98-107); CREATININE SERUM 0.8 mg/dL (0.7-1.3); GFR1 > 60 mL/min; GLUCOSE SERUM 91 mg/dL (74-106); MAGNESIUM 1.5 mg/dL (1.8-2.4); SODIUM SERUM 138 mmol/L (136-145)
[2019-04-02 07:07] LABS: POTASSIUM SERUM 2.9 mmol/L (3.5-5.1)
[2019-04-02 07:39] LABS: RED CELL DISTRIBUTION WIDTH 16.2 % (11.5-14.5)
[2019-04-02 09:20] VITALS: BP 128/76
[2019-04-02 10:28] LABS: PLATELET COUNT 28 x10^3mcL (130-400)
[2019-04-02 12:38] VITALS: BP 108/75
[2019-04-02 17:18] VITALS: BP 100/72
[2019-04-02 20:48] VITALS: BP 107/75
[2019-04-03 05:20] VITALS: BP 101/62
[2019-04-03 07:07] LABS: BASOPHIL % 0.6 % (0-2)
[2019-04-03 07:13] LABS: CALCIUM 7.9 mg/dL (8.5-10.1); CARBON DIOXIDE 24.6 mmol/L (21-32); CHLORIDE SERUM 105 mmol/L (98-107); CREATININE SERUM 0.7 mg/dL (0.7-1.3); GFR1 > 60 mL/min; GLUCOSE SERUM 82 mg/dL (74-106); MAGNESIUM 1.5 mg/dL (1.8-2.4); POTASSIUM SERUM 3.1 mmol/L (3.5-5.1); SODIUM SERUM 140 mmol/L (136-145)
[2019-04-03 07:50] LABS: RED CELL DISTRIBUTION WIDTH 16.3 % (11.5-14.5)
[2019-04-03 08:03] VITALS: BP 110/75
[2019-04-03 10:29] LABS: PLATELET COUNT 28 x10^3mcL (130-400)
[2019-04-03 12:05] VITALS: BP 99/63
[2019-04-03 16:10] VITALS: BP 138/50
[2019-04-03 20:54] VITALS: BP 105/69
[2019-04-04 05:39] VITALS: BP 98/63
[2019-04-04 06:18] LABS: CALCIUM 7.9 mg/dL (8.5-10.1); CARBON DIOXIDE 23.3 mmol/L (21-32); CHLORIDE SERUM 103 mmol/L (98-107); CREATININE SERUM 0.7 mg/dL (0.7-1.3); GFR1 > 60 mL/min; GLUCOSE SERUM 95 mg/dL (74-106); POTASSIUM SERUM 3.2 mmol/L (3.5-5.1); SODIUM SERUM 136 mmol/L (136-145)
[2019-04-04 06:38] LABS: BASOPHIL % 0.6 % (0-2)
[2019-04-04 07:29] LABS: RED CELL DISTRIBUTION WIDTH 16.4 % (11.5-14.5)
[2019-04-04 07:30] LABS: PLATELET COUNT 34 x10^3mcL (130-400)
[2019-04-04 07:55] VITALS: BP 102/70
[2019-04-04 12:02] VITALS: BP 102/68
[2019-04-04 16:08] VITALS: BP 101/70
[2019-04-04 19:52] VITALS: BP 92/59
[2019-04-05 04:39] VITALS: BP 100/69
[2019-04-05 07:50] VITALS: BP 126/80
[2019-04-05 11:28] VITALS: BP 126/76
[2019-04-05 12:16] VITALS: BP 116/77
[2019-04-05 16:30] VITALS: BP 98/72
[2019-04-05 22:00] VITALS: BP 95/65
[2019-04-06 05:59] VITALS: BP 98/64
[2019-04-06 08:53] VITALS: BP 96/65
[2019-04-06 11:51] VITALS: BP 114/68
[2019-04-06 13:04] LABS: CALCIUM 8.8 mg/dL (8.5-10.1); CHLORIDE SERUM 103 mmol/L (98-107); CREATININE SERUM 0.6 mg/dL (0.7-1.3); GFR1 > 60 mL/min; GLUCOSE SERUM 111 mg/dL (74-106); MAGNESIUM 1.1 mg/dL (1.8-2.4); POTASSIUM SERUM 3.2 mmol/L (3.5-5.1); SODIUM SERUM 137 mmol/L (136-145)
[2019-04-06 16:14] LABS: BILIRUBIN DIRECT 3.38 mg/dL (0.0-0.2); BILIRUBIN TOTAL 4.17 mg/dL (0.20-1.00); TOTAL PROTEIN, SERUM 6.9 g/dL (6.4-8.2)
[2019-04-06 16:21] LABS: ALBUMIN 2.4 g/dL (3.4-5.0)
[2019-04-06 16:38] VITALS: BP 98/68
[2019-04-06 20:59] VITALS: BP 178/69
[2019-04-06 21:30] VITALS: BP 90/63
[2019-04-07 05:57] VITALS: BP 96/69
[2019-04-07 07:07] LABS: BASOPHIL % 0.5 % (0-2)
[2019-04-07 07:46] LABS: CARBON DIOXIDE 25.3 mmol/L (21-32); CHLORIDE SERUM 104 mmol/L (98-107); CREATININE SERUM 0.7 mg/dL (0.7-1.3); GFR1 > 60 mL/min; GLUCOSE SERUM 92 mg/dL (74-106); MAGNESIUM 1.4 mg/dL (1.8-2.4); POTASSIUM SERUM 3.4 mmol/L (3.5-5.1); SODIUM SERUM 138 mmol/L (136-145)
[2019-04-07 08:26] LABS: RED CELL DISTRIBUTION WIDTH 16.2 % (11.5-14.5)
[2019-04-07 08:29] VITALS: BP 98/73
[2019-04-07 08:56] LABS: PLATELET COUNT 45 x10^3mcL (130-400)
[2019-04-07 11:20] VITALS: BP 96/52
[2019-04-07 14:18] VITALS: BP 96/52
[2019-04-07] MEDS ORDERED: THERA-M CAPLET1 EACH PO (15:09)
[2019-04-07] MEDS ORDERED: NIC21 TD (15:09)
[2019-04-07] MEDS ORDERED: LAC30L PO (15:09)
[2019-04-07] MEDS ORDERED: THI100 PO (15:09)
[2019-04-07] MEDS ORDERED: PROA PO (15:09)
[2019-04-07] MEDS ORDERED: REG5 PO (15:09)
[2019-04-07] MEDS ORDERED: FOL1 PO (15:09)
[2019-04-07 15:58] VITALS: BP 116/70
== END 2019-04-07 18:40 | DRG 280 ==
LOC: ED 19:38 → DU 22:26
PROVIDERS: Emergency Medicine; General Practice; Internal Medicine Gastroenterology; ADMIT Family Medicine
PROC: 30233R1 Transfusion of Nonautologous Platelets into Peripheral Vein, Percutaneous Approach (ICD-10-PCS; principal; 2019-04-02)
PROC: 0W9G3ZZ Drainage of Peritoneal Cavity, Percutaneous Approach (ICD-10-PCS; 2019-04-03)
PROC: 0DJ08ZZ Inspection of Upper Intestinal Tract, Via Natural or Artificial Opening Endoscopic (ICD-10-PCS; 2019-04-07)
DX: K70.31 Alcoholic cirrhosis of liver with ascites (principal); E43 Unspecified severe protein-calorie malnutrition; I85.11 Secondary esophageal varices with bleeding; D69.59 Other secondary thrombocytopenia; E87.8 Other disorders of electrolyte and fluid balance, not elsewhere classified; E83.42 Hypomagnesemia; G62.9 Polyneuropathy, unspecified; D50.9 Iron deficiency anemia, unspecified; N39.0 Urinary tract infection, site not specified; D63.8 Anemia in other chronic diseases classified elsewhere; K31.84 Gastroparesis; F10.10 Alcohol abuse, uncomplicated; G40.909 Epilepsy, unspecified, not intractable, without status epilepticus; Y90.0 Blood alcohol level of less than 20 mg/100 ml; I10 Essential (primary) hypertension; E87.6 Hypokalemia; F17.210 Nicotine dependence, cigarettes, uncomplicated; Z68.23 Body mass index [BMI] 23.0-23.9, adult; Z71.6 Tobacco abuse counseling; Z79.899 Other long term (current) drug therapy
CPT/HCPCS: 43235; 97110-GP; 97116-GP; 97530-GP; G0378; G0480; J0696; J1200; J1610; J2060; J2250; J2310; J2765; J3010; J3475; J3480; J3490; J7030; J7040; J8597; P9035; Q0092